=== PATIENT | female | born 1960 | race Caucasian/White ===

== ENCOUNTER 2019-04-09 15:46 | Outpatient (CLI) | payer OTHER, SELFPAY ==
--- NOTE | ~2019-04-09 | XR_ITS ---
EXAMINATION: XR knee RT min 4V DATE: 04/09/2019 16:11 INDICATION: Right knee pain. TECHNIQUE: 4 views of right knee were obtained. COMPARISON: None. FINDINGS: There is lateral subluxation of patella. There is lateral subluxation of tibia with respect to the distal femur. No fracture. There is mild osteoarthritis of medial compartment and moderate os teoarthritis of lateral and patellofemoral compartments. There is a small knee joint effusion. IMPRESSION: 1. Moderate right knee osteoarthritis. 2. Small right knee joint effusion. Reviewed, dictated and finalized at location A. 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
== END 2019-04-09 15:47 | disposition home or self-care (01) ==
LOC: CHSIMG 15:48
PROVIDERS: PCP Internal Medicine; Visit Provider Internal Medicine
DX: M25.561 Pain in right knee (principal)
CPT/HCPCS: 73564

== ENCOUNTER 2019-04-14 07:24 | Outpatient (CLI) | payer OTHER, SELFPAY ==
--- NOTE | ~2019-04-14 | MR_ITS ---
EXAMINATION: MR knee RT wo con DATE: 04/14/2019 09:58 INDICATION: Right knee pain and inferior right patellar pain TECHNIQUE: Magnetic resonance imaging (MRI) of the right knee was performed without intravenous contr ast. Sequences included coronal PD-weighted FSE, coronal PD-weighted FS FSE, sagittal T2-weighted FS E, sagittal PD-weighted FS FSE and axial PD weighted fat saturated FSE. COMPARISON: None. FINDINGS: Medial compartment: Medial meniscus is normal. Shallow chondral fissuring involving less than 50% the cartilage thickness along portions of the anterior weightbearing medial femoral condyle. Mild partial thickness cartilag e loss with relatively smooth chondral surface along the medial margin of the posterior weightbearing medial femoral condyle. Cartilage at the medial tibial plateau appears relatively preserved. Small m arginal osteophytes are present. Lateral compartment: Longitudinal tear of the lateral meniscus with oblique tear plane extending to contact the inferior a rticular surface at the anterior and posterior horns of the medial meniscus tear transitions to more horizontal orientation extending to the inferior articular surface near the inner free edge of the me niscus. Small para meniscal cysts along the periphery of the anterior horn of the lateral meniscus. F ull/near full-thickness cartilage loss with subarticular edema and mild subarticular cystic change at the medial aspect of the lateral tibial plateau along the shoulder the intercondylar eminence. Parti al-thickness cartilage loss with deep chondral fissuring involving greater than 50% the cartilage thi ckness and with mild subarticular edema along the medial side of the anterior weightbearing medial fe moral condyle. Small marginal osteophytes are present. Patellofemoral compartment: Extensive full/near full-thickness cartilage loss with underlying subarticular edema involving much o f the lateral patellar facet and weightbearing lateral femoral condyle. Mild chondral surface regular ity along the medial trochlea. Moderate to large marginal osteophytes are present. Ligaments and tendons: Anterior and posterior cruciate ligaments are normal. The medial collateral ligament and fibular evelin ateral ligament complex are normal. The extensor mechanism is normal. The visualized medial and later al hamstring tendons as well as the iliotibial band are normal. Fluid: Small to moderate sized right knee joint effusion with mild synovitis at the margins of the suprapate llar pouch. No loose osteochondral bodies identified. Small multilobulated ganglion cysts arising fro m the posterior medial aspect of the knee which extends caudally along the deep margin of the pes ans erinus. Additional ganglion cysts which appear to arise posteriorly near the intercondylar notch with both intraosseous and extraosseous components, the latter underlying the posterior lateral aspect of the medial tibial plateau. Osseous/other: Secondary previous noted degenerative subarticular changes there is normal marrow signal. No fracture or pathologic marrow replacing process. IMPRESSION: 1. Longitudinal tear of the lateral meniscus. 2. 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 3. Likely reactive moderate sized knee joint effusion. Reviewed, dictated and finalized at location A. [facility] C[employer] IMPRESSION: 1. Longitudinal tear of the lateral meniscus. 2. Tricompartmental osteoarthritis, severe at the lateral side of the patellofe moral compartment and mild with regions of moderate to high-grade chondromalaci a involve the medial and lateral compartments. 3. L
== END 2019-04-14 07:25 | disposition home or self-care (01) ==
LOC: CHSIMG 07:26
PROVIDERS: PCP Internal Medicine; Visit Provider Internal Medicine
DX: M25.561 Pain in right knee (principal)
CPT/HCPCS: 73721

== ENCOUNTER 2019-12-11 14:24 | Outpatient (CLI) | payer OTHER, SELFPAY ==
[2019-12-13 13:52] LABS: SARS-CoV-2 RNA PCR Negative
== END 2019-12-11 14:25 | disposition home or self-care (01) ==
LOC: CHSLAB 14:26
PROVIDERS: PCP Internal Medicine; Visit Provider Internal Medicine
DX: Z20.828 Contact with and (suspected) exposure to other viral communicable diseases (principal)
CPT/HCPCS: 87635; C9803; U0003

== ENCOUNTER 2021-02-26 12:15 | Outpatient (CLI) | payer OTHER, SELFPAY ==
--- NOTE | ~2021-02-26 | DEXA_ITS ---
Bone Density Report Name: LEOBARDO CUETO Age: 61 Sex: Female Ethnicity: White Date of : 1960 Indication: postmenopausal; screening for osteoporosis; height loss; Referring Provider: Amrita, Nakita Cote Study: Bone densitometry was performed. Exam Date: February 26, 2021 Accession number: [id number] Bone Density: Region BMD T-score Z-score Classification AP Spine(L1-L4) 0.944 -0.9 0.6 Normal Femoral Neck (Left) 0.726 -1.1 0.3 Osteopenia Total Hip (Left) 0.854 -0.7 0.3 Normal Femoral Neck (Right) 0.737 -1.0 0.4 Normal Total Hip (Right) 0.776 -1.4 -0.3 Osteopenia Femoral Neck Mean 0.732 -1.1 0.3 Osteopenia Total Hip Mean 0.815 -1.0 0.0 Normal World Health Organization criteria for BMD impression classify patients as: Normal (T-score at or above -1.0), Osteopenia (T-score between -1.0 and -2.5), or Osteoporosis (T-score at or below -2.5). 10-year Fracture Risk(1): Major Osteoporotic Fracture 7.6% Hip Fracture 0.5% Reported Risk Factors: [place] (), Neck BMD=0.726, BMI=27.6 (1) FRAX(R) Version 3.08. Fracture probability calculated for an untreated patient. Fracture probability may be lower if the patient has received treatment. Clinical Information Provided by Patient: Has used the following medications: Vitamin D Patient maximum height was 70 Menopause Age: 54 Drinks caffeinated beverages Onset of menses at age 15 Number of children 0 Impression: The patient has low bone mass, based on the Right Total Hip T-score. Discussion: BONE DENSITY IS LOW AT ONE OR MORE SKELETAL SITES. This patient's lowest T-score is low at one or more skeletal sites. It meets the World Health Organization's (WHO) criteria for ?low bone mass? (T-score between -1.0 and -2.5). The patient's 10-year risk of fracture as calculated by FRAX is less than the threshold where pharmacological therapy is recommended by the National Osteoporosis Foundation (NOF). However, all treatment decisions require clinical judgment and consideration of individual patient factors, including patient preferences, comorbidities, previous drug use, risk factors not captured in the FRAX model (e.g., frailty, falls, vitamin D deficiency, increased bone turnover, interval significant decline in bone density) and possible under or overestimation of fracture risk by FRAX. The patient should follow a healthful lifestyle (good nutrition with adequate calcium and vitamin D, and appropriate weight-bearing exercise). Follow-Up: Consider repeating this study in 2 to 3 years to reassess this patient's status, or sooner if there is some new clinical indication. Reported by: Dr. Troy Lockwood on 02/26/2021 12:49:00 PM. Reviewed, dictated and finalized at locat
== END 2021-02-26 12:16 | disposition home or self-care (01) ==
LOC: CHSIMG 12:16
PROVIDERS: PCP Internal Medicine; Visit Provider Nurse Practitioner Family
DX: Z78.0 Asymptomatic menopausal state (principal)
CPT/HCPCS: 77080

== ENCOUNTER 2021-05-06 16:10 | Outpatient (CLI) | payer OTHER, SELFPAY ==
--- NOTE | ~2021-05-06 | XR_ITS ---
EXAMINATION: XR knee RT min 4V DATE: 05/06/2021 16:31 INDICATION: Chronic diffuse right knee pain and swelling TECHNIQUE: Weight bearing anteroposterior and Hardwick, sunrise, and flexed lateral views of the rig ht knee were obtained COMPARISON: None. FINDINGS: 1 cm lateral patellar subluxation. There is also mild genu valgus and 7 mm lateral subluxation at the femorotibial articulation on the Hardwick projection. No fracture. Tricompartmental osteoarthritis with severe joint space are at the lateral aspect of the patellofemoral compartment with large margin al osteophytes. Mild to moderate joint space narrowing in the lateral compartment with the knee flexe d on the Hardwick projection. Moderate-sized marginal osteophytes along the medial and lateral tibia l plateau. Moderate-sized right knee joint effusion. IMPRESSION: 1. Tricompartmental osteoarthritis, severe at the lateral patellofemoral articulation and mild to mod erate in the lateral compartment. Reviewed, dictated and finalized at location A. 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 Tricompartmental osteoarthritis, severe at the lateral patellofemoral articu lation and mild to moderate in the lateral compartment.
== END 2021-05-06 16:11 | disposition home or self-care (01) ==
LOC: CHSIMG 16:11
PROVIDERS: PCP Internal Medicine; Visit Provider Internal Medicine
DX: M25.561 Pain in right knee (principal); M25.461 Effusion, right knee
CPT/HCPCS: 73564

== ENCOUNTER 2021-08-12 14:19 | Outpatient (RCR) | payer OTHER, SELFPAY ==
--- NOTE | 2021-08-12 15:01 | PTOPEVAL ---
Thank you for referring America Ozuna to [facility].? The patient is scheduled to be seen for therapy? __2__x/week for 8 visits. Please review, sign, date and return this plan of care SUSAN. I agree with and certify that the following plan of care is medically necessary. Referring Physician Date Admitting Provider: Attending Provider: Adi Puentes MD Referring Provider: *PT Outpatient Evaluation Start: 08/12/21 14:22 Freq: Status: Active Protocol: Document 08/12/21 14:23 HOA (Rec: 08/12/21 15:01 HOA [id number]) Therapy Assessment Status Assessment Status Assessment Status Evaluation Evaluation Information Problem Diagnosis right anterior knee pain syndrome Onset 02/28/21 Subjective Information Pt. reports that about 2 years Query Text:As Reported By Patient/ ago she developed on/off knee Family pain. She reports that February of this year she began noticing swelling. She recalls no specific injury. She states that she underwent xray and revealed she is a candidate for knee replacment. 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 She states that pain develops at night and disrupts sleep. Pain Assessment Timing of Pain Assessment Timing of Pain Assessment Pre-Treatment Pain Scale Pain Scale Used Numeric (1 - 10) Self Report Pain Assessment Right Knee(s) Reported Pain Level 2 Greatest Pain Intensity 5 Pain Score Pain Score 2: Self Report Interventions Used Interventions Used By Clinicians Electrical Stimulation, Exercise,Heat Lower Extremity Range of Motion General Lower Extremity Range of Motion Gross Lower Extremity Range of Motion -right knee AROM 7-125 Comments -left knee AROM 0-125 Lower Extremity Muscle Strength Testing General Lower Extremity Strength Gross Lower Extremity Strength -bilateral hip flexion 5/5 -bilateral hip abduction 4/5 -bilateral knee flexion 5/5 -bilateral knee extension 5/5 -bilateral ankle dorsiflexion 5/5 Muscle Length Testing Muscle Length Testing Left Hamstring Length 10 Query Text:(90 - 90 Position)
== END 2021-09-21 18:29 | disposition home or self-care (01) ==
LOC: CHSPT 14:19
PROVIDERS: Visit Provider Orthopaedic Surgery
DX: M25.561 Pain in right knee (principal)
CPT/HCPCS: 97014; 97110; 97140; 97161; G0283

== ENCOUNTER 2021-10-05 13:36 | Outpatient (CLI) | payer OTHER, SELFPAY ==
--- NOTE | 2021-10-05 14:34 | ECG_ITS ---
Measurements Intervals [place] Rate: 73 P: 27 CA: 164 QRS: 39 QRSD: 85 T: 21 QT: 367 QTc: 407 Interpretive Statements SINUS RHYTHM ABNORMAL EKG NO PREVIOUS ECG AVAILABLE FOR COMPARISON Electronically Signed On 10-06-2021 16:23:50 CDT by Aparna Coombs M.D.
[2021-10-05 15:03] LABS: Basophils Absolute Auto 0.1 K/mm3 (0.0-0.1); Basophils Percent Auto 0.9 % (0.2-1.2); Eosinophils Absolute Auto 0.4 K/mm3 (0-0.3); Eosinophils Percent Auto 5.2 % (0-4.4); Hematocrit 41.8 % (37.0-47.0); Hemoglobin 13.2 g/dL (12.0-15.0); Immature Granulocyte Absolute 0.04 K/mm3 (0.00-0.031); Immature Granulocyte Percent A 0.5 % (0-0.5); Lymphocytes Absolute Auto 2.31 K/mm3 (0.9-3.2); Lymphocytes Percent Auto 29.4 % (18.3-44.2); Mean Corpuscular HGB Conc 31.6 g/dl (32-36); Mean Corpuscular Hemoglobin 27.4 pg (26-34); Mean Corpuscular Volume 86.7 fl (80-100); Mean Platelet Volume 9.7 fl (7.4-10.4); Monocytes Absolute Auto 0.6 K/mm3 (0.1-0.6); Monocytes Percent Auto 7.5 % (2.6-8.5); Neutrophils Absolute Auto 4.4 K/mm3 (1.3-6.7); Neutrophils Percent Auto 56.5 % (45.5-73.1); Platelet Count Result 309 k/mm3 (150-375); Red Blood Count 4.82 M/mm3 (4.2-5.4); Red Cell Distribution Width 14.6 % (11.5-14.5); White Blood Count 7.9 K/mm3 (4.5-10.0)
[2021-10-05 15:12] LABS: Urine Cotinine NEGATIVE
[2021-10-05 15:15] LABS: Hemoglobin A1C 5.8 % (<5.7)
[2021-10-05 15:17] LABS: Albumin Level 4.7 g/dL (3.5-5.1); Anion Gap 9 mmol/L (8-16); Blood Urea Nitrogen 15 mg/dL (7-17); Calcium 9.5 mg/dL (8.4-10.2); Carbon Dioxide 30 mmol/L (22-30); Chloride 99 mmol/L (98-107); Estimated Glomerular Filt Rate > 60; Glucose 93 mg/dL (65-110); Potassium 3.5 mmol/L (3.4-5.0); Sodium 138 mmol/L (137-145)
== END 2021-10-05 13:37 | disposition home or self-care (01) ==
LOC: ANHSURGERY 13:41
PROVIDERS: PCP Internal Medicine; Visit Provider Orthopaedic Surgery
DX: M17.11 Unilateral primary osteoarthritis, right knee (principal); Z01.818 Encounter for other preprocedural examination; R94.31 Abnormal electrocardiogram [ECG] [EKG]
CPT/HCPCS: 80048; 80307; 82040; 83036; 85025; 87070; 87147; 87181; 87186; 93005

== ENCOUNTER 2021-10-21 02:12 | Day surgery (SDC) | payer OTHER, SELFPAY ==
[2021-10-05 13:46] VITALS: BMI 27.3
--- NOTE | 2021-10-05 14:10 | PC.NURSE ---
Report to the Outpatient Waiting Room, entrance under the green pavilion located off [facility], at time __1000 on date __10/21/21 . OR Time: _1200 . - You and your visitor will be asked a series of questions to screen for COVID 19 for your protection. - Only one visitor is allowed at this time. - The patient visitor is requested to leave or wait in car when not with patient. - A mask is required within the hospital. Patients may have clear liquids (water, carbonated beverages, clear teas, apple juice) until 3 hours prior to surgery with a maximum of 20 ounces. - No food from midnight until time of surgery - Infants may have breast milk until 4 hours before surgery, infant formula 6 hours prior to surgery. - Children will be allowed to drink immediately following surgery. If applicable, please bring a bottle or sippy cup to assist with drinking. Juice, water, soda, and popsicles are readily available. For infants on formula, please bring formula the day of surgery. Pacifiers are allowed. Take the following medications with a SIP of water the morning of surgery: ____ESCITALOPRIM Medications to discontinue per physician __VITAMIN D3 3 DAYS PRE OP Date to take last dose____10/17/21 Please no make-up, nail syriac, hairspray, perfume, deodorant, or body powder the day of surgery. No jewelry (including any body piercings) or valuables the day of surgery, leave them at home. Please take a shower or bath the night before, or the morning of, surgery with an antibacterial soap. Wear comfortable, loose fitting clothing. Children are encouraged to wear pajamas. - Jewelry must be removed prior to entering the operating room. Rings and piercings that are not removed may be cut off. - The hospital will not accept responsibility for valuables. - Please leave all valuables, including medications, at home the day of surgery. If you are going home after surgery, a licensed driver messenger must drive you home. - NO public transportation without another adult. - We recommend that an adult stay with you for 24 hours following discharge. - We also recommend that you do not drive, make important decision, drink alcoholic beverages, or take any drugs that were not prescribed by your health care provider for at least 24 hours after your discharge time. For Pediatric surgeries, we recommend two adults accompany the child home (only one inside the building at this time). Follow any additional instructions given to you from your surgeon. If you or anyone in your household have experienced Covid symptoms in the past week, please notify your surgeon or the nurse liaison at the phone number below for possible testing. VERBAL AND WRITTEN instructions given to ___PATIENT and asked if any additional questions and then verbalized understanding. Patient advised to call surgeon office or pre surgery nurse liaison [phone] if any additional questions.
[2021-10-05 14:24] VITALS: BP 136/88; PULSE 71; RESP 18; TEMP 36.9; O2SAT 100
--- NOTE | 2021-10-19 12:08 | PM.IMHP ---
H&P: HPI History of Present Illness Date/Time: 10/19/21 12:08 Chief Complaint: Right knee DJD Narrative: 61-year-old female patient of Dr. Saldana who presents today for a right total knee arthroplasty. Patient has been having progressively worsening symptoms in the right knee over last 6-8 months. She has severe patellofemoral osteoarthritis as well as moderately severe lateral compartment osteoarthritis. She had a cortisone injection in April of this year as well as been on anti-inflammatories without improvement of her symptoms. She has pain on a daily basis that is affecting her lifestyle. She feels this point she is ready to proceed with total knee arthroplasty and presents today for that. Review of Systems Review of Systems: All systems reviewed & are unremarkable except as noted in HPI and below PMFSH Social History Social History Smoking packs per day: 1 Smoking cigarettes per day: 20.0 Years smoked: 5 Smoking pack-years: 5.00 Smoking status: Former smoker Tobacco type: cigarettes Smoking end date: 02/28/01 Additional smoking assessment comments: DENIES ANY FORM OF TOBACCO USE Alcohol intake: current Drinks per week: 2 Spiritual care concerns: No Meds Home Medications and Allergies Home Medications Medication Instructions Recorded Confirmed Type celecoxib 200 mg capsule 200 mg PO DAILY 10/05/21 10/05/21 History cholecalciferol (vitamin D3) 25 25 mcg PO DAILY 10/05/21 10/05/21 History mcg (1,000 unit) tablet escitalopram oxalate 10 mg tablet 10 mg PO QAM 10/05/21 10/05/21 History hydrocodone 10 mg-acetaminophen 1.5 tablet PO BID INSOMNIA/PAIN 10/05/21 10/05/21 History 325 mg tablet Allergies Allergy/AdvReac Type Severity Reaction Status Date / Time Penicillins Allergy Rash/JOINT Verified 10/05/21 13:48 PAIN Sulfa (Sulfonamide Allergy Rash/JOINT Verified 10/05/21 13:48 Antibiotics) PAIN Exam Narrative: 62-year-old female alert pleasant. She is 5 ft 9 and 184 lb, her BMI is 27.2. Right knee range of motion is from 5-140 degrees. She has a moderate effusion. Mild valgus alignment. Mild atrophy of the right quadriceps relative to the left. Does have good quadriceps strength. Hip range of motion is full without discomfort, negative Stinchfield maneuver. Trace dorsalis pedis and 2+ posterior tibial artery pulse palpable. Skin is all intact and normal with no edema in the lower extremities. She has normal sensation lower extremities. Resp: Auscultation: clear to auscultation bilaterally Cardio: Rate: regular rate Rhythm: regular rhythm Assessment and Plan Assessment and plan (1) Right knee DJD: Code(s): M17.11 - Unilateral primary osteoarthritis, right knee Status: Acute Plan 61-year-old female who has severe patellofemoral and moderately severe lateral compartment osteoarthritis of the right knee. She has failed nonsurgical treatment. She has had continued symptoms of pain daily that is affecting her normal lifestyle. She is ready to proceed with total knee arthroplasty at this point. Surgical procedure as well as the risks and complications were discussed in detail and all questions were answered. She will see her primary care doctor for pre-surgical clearance. She will avoid any aspirin or ibuprofen products 1 week prior surgery. Her nasal swab did go oxacillin sensitive Staph aureus, she has been in the colonizing as of 10/12. The Chem panel was all within normal limits creatinine 0.70. Hemoglobin 13.2 and platelets were 309. We will plan to use Eliquis for DVT prophylaxis postoperatively.
--- NOTE | 2021-10-20 12:00 | P.PNAN_ITS ---
Anes - Initial Pre Proc Eval Procedure: Operation Date: 10/21/21 12:00 Proposed Procedures p Right Total Knee Arthroplasty - Adi Puentes MD Date/Time: 10/20/21 12:00 Surgeon: Adi Puentes MD Pre Op Diagnosis: oa right knee Patient Data Age: 61 Gender: F Height: 1.75 m Weight: 83.8 kg Last Vital Signs Temp 36.9 C 10/05/21 14:24 Pulse 71 10/05/21 14:24 Resp 18 10/05/21 14:24 BP 136/88 10/05/21 14:24 Pulse Ox 100 10/05/21 14:24 O2 Del Method Room Air 10/05/21 14:24 Allergies Allergy/AdvReac Type Severity Reaction Status Date / Time Penicillins Allergy Rash/JOINT Verified 10/21/21 09:57 PAIN Sulfa (Sulfonamide Allergy Rash/JOINT Verified 10/21/21 09:57 Antibiotics) PAIN Home Medications Medication Instructions Recorded Confirmed Type celecoxib 200 mg capsule 200 mg PO DAILY 10/05/21 10/21/21 History cholecalciferol (vitamin D3) 25 25 mcg PO DAILY 10/05/21 10/21/21 History mcg (1,000 unit) tablet escitalopram oxalate 10 mg tablet 10 mg PO QAM 10/05/21 10/21/21 History hydrocodone 10 mg-acetaminophen 1.5 tablet PO BID INSOMNIA/PAIN 10/05/21 10/21/21 History 325 mg tablet Patient hx anesthesia problems: none Family hx anesthesia problems: none Results Review: All pre-operative results and documents have been reviewed as part of the pre- operative evaluation. PMFSH Past Medical History Medical History (Updated 10/20/21 @ 12:07 by Abhishek Leblanc MD) Right knee DJD Social History Social History Smoking packs per day: 1 Smoking cigarettes per day: 20.0 Years smoked: 5 Smoking pack-years: 5.00 Smoking status: Former smoker Tobacco type: cigarettes Smoking end date: 02/28/01 Additional smoking assessment comments: DENIES ANY FORM OF TOBACCO USE Alcohol intake: current Drinks per week: 2 Living arrangements: with family Spiritual care concerns: No Anes - Eval Final PreProcedure Day of Procedure 08/23/22 12:00 Patient weight: overweight Heart: regular rate and rhythm Lungs: clear to auscultation and normal air movement Airway: Mallampati scale class II Neurological: alert and oriented Last oral intake: >/= 8 hours ASA classification: II Emergent: no Anesthetic plan: proceed Anesthesia type and monitoring: general LMA Results Review: All pre-operative results and documents have been reviewed as part of the pre- operative evaluation. Informed Consent: The patient's anesthetic plan and its attendant risks and benefits were discussed with the patient/family/POA. Questions were solicited and answers provided to the satisfaction of the patient/family/POA.
[2021-10-21] VITALS (12 sets, daily range): BP systolic 110–147; BP diastolic 61–91; PULSE 78–102; RESP 10–16; TEMP 35.6–36.8; O2SAT 97–100
--- NOTE | ~2021-10-21 | XR_ITS ---
EXAM: XR knee RT 2V DATE: 10/21/2021 16:28 HISTORY: RT TOTAL KNEE . COMPARISON: None available. FINDINGS: Interval right total knee arthroplasty, image in progress. Hardware in anatomic alignment, with subcutaneous and joint space gas. IMPRESSION: Expected postsurgical changes, with no radiographic evidence of procedure or hardware rel ated complication. Reviewed, dictated and finalized at location K. IMPRESSION: Expected postsurgical changes, with no radiographic evidence of pro cedure or hardware related complication.
[2021-10-21] MEDS: ACETAMINOPHEN 500 MG TABLET 1000 MG PO ×3 (10:01→23:55)
[2021-10-21] MEDS: LACTATED RINGERS 1,000 ML 30 ML IV CONT ×2 (10:24→16:16)
--- NOTE | 2021-10-21 11:15 | SUR.PREOP ---
Patient developed itchy head so slowed vacomycin to 100ml/hr and itching subsided.
[2021-10-21] MEDS: TRANEXAMIC ACID 1,000MG/ISO100 1,000 MG/100 ML BAG 200 MG IVPB (11:54)
--- NOTE | 2021-10-21 11:56 | WPDHPUPDATE1 ---
History and Physical Update Update Date/Time: 10/21/21 11:56 History and Physical has been reviewed, including an updated exam of the patient. There are NO changes in the patient's condition. Risks, benefits, and alternatives have been discussed and questions answered. Patient agrees to proceed with procedure.
[2021-10-21] MEDS: ceFAZolin 2 GM/D5W 50 ML 2 GM/50 ML BAG IVPB (12:04)
[2021-10-21] MEDS: ceFAZolin SODIUM 1 GM VIAL 3 GM IRRIGATION (13:30)
[2021-10-21] MEDS: GENTAMICIN BONE CEMENT REFOBACIN 1 EACH TOPICAL (14:47)
[2021-10-21] MEDS: TRANEXAMIC ACID 1,000 MG/10 ML AMPUL 1000 MG IV PUSH (15:00)
[2021-10-21] MEDS: ceFAZolin SODIUM 1 GM VIAL 2 GM IV PUSH (15:06)
--- NOTE | 2021-10-21 15:56 | W.PM.PROC2 ---
Procedure Note - Detailed Date of Procedure 10/21/21 Pre-op Diagnosis oa right knee Post-op Diagnosis Same Procedure Performed Right total knee arthroplasty Surgeon Adi Puentes MD [employer] Shukri alvarez Description of Procedure Patient was brought to the operating room and general anesthesia was administered. He she received 2 g of Ancef weight based vancomycin 1 g of tranexamic acid preoperatively. The the right knee was prepped draped usual fashion. She had a fairly positive bounce before surgery indicating about 2 or 3 degree flexion contracture. Limb was exsanguinated tourniquet elevated to 250 mmHg. A 7 in longitudinal incision was made and a vastus medialis splitting approach utilized splitting the vastus medialis at the superior pole of the patella. Infrapatellar and suprapatellar fat pads were excised and a quadriceps synovectomy carried out. She did have rather extensive chronic appearing bland synovium that was quite hypertrophic on the undersurface of the acromion. Large hypertrophic osteophytes were present diffusely. The patella was scalloped and measured 21 mm in thickness centrally. There was a little thicker than this at the inferior and superior poles of the patella. The bone was quite eburnated bone was a little bit of bone loss. Central patellar thickness was 21 mm. The patella was cut to 15 mm. A protector cap was applied. Bone quality was very good there. Next a guide joe was inserted on the femoral canal after aspiration of canal contents using the 5 degree valgus cutting bushing, 9 mm of bone removed the distal femur. Next the tibial plateau was cut. We tried to make a skim cut off the low point of the medial tibial plateau. Our initial cut left a little bit of cartilage on the posterior 1/3 of the tibial plateau. An additional 2.5 mm of bone was removed the tibial plateau and this gave appropriate exposed bone surface all the way around the tibial plateau and we ensured that this was perpendicular to the axis of the tibia. Meniscal remnants were excised and PCL recessed. We avoided any capsule released from the medial tibia during the procedure as she had a grade 1 valgus deformity. At 90? of flexion the medial gap was 9 mm the lateral gap 14 mm. 6? of external rotation was placed on the sizing guide which matched [place] line and posterior referencing pinholes were placed. Week made the anterior cut initially with the size 67.5 cutting block and we could see on initial placement that this was going to notch little bit and so we did flex the distal femoral cut a few degrees. AP and chamfer cuts were made and we trialed and the 67.5 was too wide. We therefore downsized to the 65 and 65 cutting block was carefully applied incorporating the little bit of flexion and further stabilized with the threaded pins. Her bone on the medial side of the femur was quite osteoporotic so we were very careful to stabilized cutting block and complete the cuts while leaving a tight fit for the trial which was accomplished and the 65 fit line to line with less than a mm of lateral overhang was appropriate. We trialed and the knee was too tight in extension laterally with the 10 mm CR insert and had ample play in flexion with this. Additional 2 mm of bone removed the distal femur and chamfer cuts revisited. The tibia was then sized to a size 71 which fit line to line medial to lateral and anteromedial to posterolateral with the component in proper rotation and this was punched. Posterior femoral osteophyte was removed conservative central posterior release was performed of the capsule from the distal femur and we trialed. The 10 was the 10 was too loose in flexion the 11 was appropriate in flexion and with the arthrotomy towel clipped there was complete anterior drawer stability at 120? of flexion beyond. In extension there was about 3 mm of play medially and 1 mm laterally. The knee almost came out to full extension but not q
[2021-10-21] MEDS: fentaNYL CITRATE INJ (*CRX) 100 MCG/2 ML VIAL 25 MCG IV PUSH ×6 (16:42→17:38)
--- NOTE | 2021-10-21 16:50 | SUR.PHASEI ---
1649: Simple mask removed.
--- NOTE | 2021-10-21 17:52 | ADMGEN ---
This patient, America Ozuna, was admitted to 2 Medical Room 256-. Patient/family oriented to hospital policies and general routines including ID bracelet, bed and alarms, visiting hours, pain management, procedures, bathroom and other care routines, personal items, smoking policy, room service/diet, and visiting hours. Information on how to activate the Rapid Response Team has been discussed. Patient/Family are encouraged to report perceived risks to care and to ask questions if they do not understand what they are told or what they should do.
[2021-10-21] MEDS: oxyCODONE HCL (*CRX) 2.5 MG TAB IR 7.5 MG PO ×2 (18:22→22:04)
[2021-10-21] MEDS: SENNA/DOCUSATE SODIUM TABLET 2 TAB PO (18:22)
[2021-10-21] MEDS: SODIUM CHLORIDE 0.9% IV 1,000 ML 125 ML IV CONT (18:24)
--- NOTE | 2021-10-21 18:55 | PM.IMCN ---
Assessment and Plan Assessment and plan (1) Right knee DJD: Code(s): M17.11 - Unilateral primary osteoarthritis, right knee Status: Acute Assessment and Plan: Status post right TKA 10/21. Ortho managing, pain meds per Ortho. Patient on Eliquis for DVT prophylaxis. Incentive spirometer at bedside, educated patient on use (2) Anxiety: Code(s): F41.9 - Anxiety disorder, unspecified Status: Acute Assessment and Plan: Continue Lexapro HPI Data of Consult Consult date: 10/21/21 Requesting Physician: Adi Puentes MD Primary Care Provider: Gilberto Saldana MD Consult Narrative Narrative: Greater than 30 minutes spent reviewing chart, evaluating, treating, counseling patient. America Ozuna is a 61 year old female past medical history of anxiety and right knee DJD. Presented for right TKA, now postop. Medicine consult for medical management. Patient denies any symptoms including shortness of breath, chest pain, palpitations, fever/chills, nausea/vomiting, diarrhea/constipation, dysuria/hematuria. Patient reports no pain at the moment. Has not had a bowel movement or pass urine since her procedure as of yet. Review of Systems Review of Systems: Ten point ROS reviewed, negative unless otherwise specified per HPI PMFSH Past Medical History Medical History (Updated 10/21/21 @ 18:59 by Ritchie Dunlap DO) Right knee DJD Social History Social History Smoking packs per day: 2 Smoking cigarettes per day: 40.0 Years smoked: 5 Smoking pack-years: 10.00 Smoking status: Former smoker Tobacco type: cigarettes Smoking end date: 02/28/01 Additional smoking assessment comments: DENIES ANY FORM OF TOBACCO USE Alcohol intake: current Drinks per week: 1 Substance use: never Substance use type: does not use Living arrangements: with family Spiritual care concerns: No Meds Home Medications and Allergies Home Medications Medication Instructions Recorded Confirmed Type celecoxib 200 mg capsule 200 mg PO DAILY 10/05/21 10/21/21 History cholecalciferol (vitamin D3) 25 25 mcg PO DAILY 10/05/21 10/21/21 History mcg (1,000 unit) tablet escitalopram oxalate 10 mg tablet 10 mg PO QAM 10/05/21 10/21/21 History hydrocodone 10 mg-acetaminophen 1.5 tablet PO BID INSOMNIA/PAIN 10/05/21 10/21/21 History 325 mg tablet Allergies Allergy/AdvReac Type Severity Reaction Status Date / Time Penicillins Allergy Rash/JOINT Verified 10/21/21 09:57 PAIN Sulfa (Sulfonamide Allergy Rash/JOINT Verified 10/21/21 09:57 Antibiotics) PAIN Vital Signs Vital Signs - 24 hr 10/21/21 10:07 10/21/21 16:16 10/21/21 16:30 Temperature 98 F 97.9 F Pulse Rate 78 102 H 86 Respiratory Rate 16 16 14 Blood Pressure 147/91 H 133/80 142/75 H Pulse Oximetry 100 100 100 Oxygen Delivery Room Air Simple Face Mask Simple Face Mask Oxygen Flow Rate 6 6 10/21/21 16:45 10/21/21 17:00 10/21/21 17:15 Temperature Pulse Rate 87 90 88 Respiratory Rate 10 L 12 14 Blood Pressure 138/67 136/83 137/73 Pulse Oximetry 100 99 97 Oxygen Delivery Simple Face Mask Room Air Room Air Oxygen Flow Rate 6 10/21/21 17:30 10/21/21 17:38 10/21/21 17:53 Temperature 96.9 F L 96.3 F L Pulse Rate 93 94 86 Respiratory Rate 13 16 16 Blood Pressure 121/81 131/64 131/68 Pulse Oximetry 98 98 99 Oxygen Delivery Room Air Oxygen Flow Rate 10/21/21 18:03 10/21/21 18:36 Temperature 96.1 F L Pulse Rate 87 Respiratory Rate 16 Blood Pressure 135/71 Pulse Oximetry 98 Oxygen Delivery Room Air Oxygen Flow Rate Exam Const: General: comfortable and no acute distress HENMT: Mouth: Yes moist mucous membranes Eyes: General: appearance normal, both eyes and all related structures Sclera: sclerae normal Neck: Neck: supple Resp: Effort & Inspection: normal respiratory effort Auscultation: clear to auscultatio
[2021-10-22] MEDS: oxyCODONE HCL (*CRX) 2.5 MG TAB IR 7.5 MG PO (02:02)
[2021-10-22 03:23] VITALS: BP 104/51; PULSE 100; RESP 12; TEMP 36.6; O2SAT 100
[2021-10-22 05:52] LABS: Basophils Percent Auto 0.3 % (0.2-1.2); Eosinophils Percent Auto 0.3 % (0-4.4); Hematocrit 34.2 % (37.0-47.0); Immature Granulocyte Absolute 0.05 K/mm3 (0.00-0.031); Immature Granulocyte Percent A 0.4 % (0-0.5); Lymphocytes Absolute Auto 1.22 K/mm3 (0.9-3.2); Lymphocytes Percent Auto 10.4 % (18.3-44.2); Mean Corpuscular HGB Conc 32.2 g/dl (32-36); Mean Corpuscular Hemoglobin 27.6 pg (26-34); Mean Corpuscular Volume 85.7 fl (80-100); Mean Platelet Volume 10.1 fl (7.4-10.4); Monocytes Percent Auto 8.3 % (2.6-8.5); Neutrophils Absolute Auto 9.4 K/mm3 (1.3-6.7); Neutrophils Percent Auto 80.3 % (45.5-73.1); Platelet Count Result 281 k/mm3 (150-375); Red Blood Count 3.99 M/mm3 (4.2-5.4); Red Cell Distribution Width 14.1 % (11.5-14.5); White Blood Count 11.8 K/mm3 (4.5-10.0)
[2021-10-22] MEDS: oxyCODONE HCL (*CRX) 2.5 MG TAB IR PO ×3 (05:57→14:04)
[2021-10-22] MEDS: ACETAMINOPHEN 500 MG TABLET 1000 MG PO ×2 (05:57→12:09)
[2021-10-22] MEDS: oxyCODONE HCL (*CRX) 5 MG TAB IR PO ×3 (05:57→14:07)
[2021-10-22 05:58] LABS: Anion Gap 5 mmol/L (8-16); Blood Urea Nitrogen 11 mg/dL (7-17); Calcium 8.5 mg/dL (8.4-10.2); Carbon Dioxide 29 mmol/L (22-30); Chloride 103 mmol/L (98-107); Estimated CRCL calculation 75 ml/min; Estimated Glomerular Filt Rate > 60; Glucose 110 mg/dL (65-110); Potassium 3.7 mmol/L (3.4-5.0); Sodium 137 mmol/L (137-145)
--- NOTE | 2021-10-22 07:17 | PM.PNORT ---
Subjective Subjective Date/Time Seen: 10/22/21 07:17POD 1 alert avss , labs-noted, pt has been up to restroom multiple times so far. Pain is well controlled, dressing is dry, NVI, plan to have pt work with PT today then send home this afternoon Objective Data Vital Signs Vital Signs: Vital Signs - 24 hr 10/21/21 10:07 10/21/21 16:16 10/21/21 16:30 Temperature 36.6 C 36.6 C Pulse Rate 78 102 H 86 Respiratory Rate 16 16 14 Blood Pressure 147/91 H 133/80 142/75 H Pulse Oximetry 100 100 100 Oxygen Delivery Room Air Simple Face Mask Simple Face Mask Oxygen Flow Rate 6 6 10/21/21 16:45 10/21/21 17:00 10/21/21 17:15 Temperature Pulse Rate 87 90 88 Respiratory Rate 10 L 12 14 Blood Pressure 138/67 136/83 137/73 Pulse Oximetry 100 99 97 Oxygen Delivery Simple Face Mask Room Air Room Air Oxygen Flow Rate 6 10/21/21 17:30 10/21/21 17:38 10/21/21 17:53 Temperature 36.1 C L 35.7 C L Pulse Rate 93 94 86 Respiratory Rate 13 16 16 Blood Pressure 121/81 131/64 131/68 Pulse Oximetry 98 98 99 Oxygen Delivery Room Air Oxygen Flow Rate 10/21/21 18:03 10/21/21 18:36 10/21/21 19:23 Temperature 35.6 C L 36.6 C Pulse Rate 87 86 Respiratory Rate 16 12 Blood Pressure 135/71 127/61 Pulse Oximetry 98 99 Oxygen Delivery Room Air Oxygen Flow Rate 10/21/21 23:23 10/22/21 03:23 Temperature 36.8 C 36.6 C Pulse Rate 99 100 Respiratory Rate 16 12 Blood Pressure 110/71 104/51 L Pulse Oximetry 97 100 Oxygen Delivery Oxygen Flow Rate Intake/Output Intake/Output: Intake & Output 10/19/21 10/20/21 10/21/21 10/22/21 23:59 23:59 23:59 23:59 Intake Total 1800 1250 Output Total 200 Balance 1800 1050 Meds/Results Medications: Active Medications Generic Name Dose Route Start Last Admin Trade Name Freq PRN Reason Stop Dose Admin Acetaminophen 1,000 mg 10/21/21 18:00 10/22/21 05:57 Acetaminophen 500 Mg Tablet PO 1,000 mg Q6H RONALD Administration Apixaban 2.5 mg 10/22/21 09:00 Apixaban 2.5 Mg Tablet PO Q12HR [facility] Celecoxib 200 mg 10/22/21 09:00 Celecoxib 200 Mg Capsule PO DAILY [facility] Cephalexin HCl 500 mg 10/22/21 18:00 Cephalexin 500 Mg Capsule PO Q6HR [facility] Escitalopram Oxalate 10 mg 10/22/21 09:00 Escitalopram Oxalate 10 Mg Tablet PO QAM RONALD Vancomycin HCl 1,000 mg in 250 mls @ 250 mls/hr 10/21/21 22:00 10/21/21 23:55 Vancomycin 1,000 Mg/D5w 250 Ml IVPB 10/22/21 10:59 Infused Q12H [facility] Infusion Cefazolin Sodium 1 gm in 50 mls @ 100 mls/hr 10/21/21 23:00 10/22/21 06:43 Ancef 1 Gm/D5w 50 Ml Pm IVPB 10/22/21 15:29 100 mls/hr Q8H [facility] Administration Morphine Sulfate 2 mg 10/21/21 17:38 Morphine Sulfate (*Crx) 2 Mg/Ml Inj IV PUSH Q1H PRN Pain Rated 7-10 Naloxone HCl 0.1 mg 10/21/21 17:38 Naloxone Hcl 0.4 Mg/Ml Vial IV PUSH Q2M PRN Opiate Reversal Oxycodone HCl 5 mg 10/21/21 17:38 Oxycodone Hcl (*Crx) 5 Mg Tab Ir PO Q4H PRN Pain Rated 4-10 Oxycodone HCl 2.5 mg 10/22/21 06:00 10/22/21 05:57 Oxycodone Hcl (*Crx) 2.5 Mg Tab Ir PO 2.5 mg Q4H RONALD Administration Oxycodone HCl 5 mg 10/22/21 06:00 10/22/21 05:57 Oxycodone Hcl (*Crx) 5 Mg Tab Ir PO 5 mg Q4H [facility] Administration Polyethylene Glycol 17 gm 10/22/21 09:00 Polyethylene Glycol 3350 17 Gm Powd.Pack PO QAM [facility] Senna/Docusate Sodium 2 tab 10/21/21 17:38 10/21/21 18:22 Senna/Docusate Sodium Tablet PO 2 tab BID [facility] Administration Vitamin D 1,000 units 10/22/21 09:00 Cholecalciferol 1,000 Units Tablet PO DAILY RONALD Radiology Results: ITS Impressions Knee X-Ray 10/21/21 16:29 IMPRESSION: Expected postsurgical changes, with no radiographic evidence of procedure or hardware related complication. Labs Labs: Laboratory Results - last 24 hr 10/21/21 10/22/21 10/22/21 10:20 05:19 05:19 WBC 11.8 H RBC 3.99 L Hgb 11.0 L Hc
--- NOTE | 2021-10-22 09:13 | PM.DS ---
DS: Admitting Diagnosis Discharge Date 10/22 Admitting Diagnosis right knee DJD DS: Discharge Diagnosis Discharge Diagnosis Plan 61-year-old female who underwent right total knee arthroplasty on 10/21. Underwent the procedure without complications. Postoperatively she has been afebrile vital signs are stable. She was up to the restroom multiple times a day of surgery. Overall pain is well controlled. Patient will work with Physical therapy on . If she continues do well we will plan on discharging home later that day. She is on Eliquis for DVT prophylaxis. She is on Keflex due to her positive nasal swab for NEMESIO. She is going home on Celebrex once a day as well as scheduled Tylenol and oxycodone 5 mg. She is also on Senokot and MiraLax. Patient was advised to keep the leg elevated at home to prevent swelling. She is to do her exercises on a regular basis at home. She has outpatient therapy starting next Tuesday. Patient was advised any questions or concerns when she goes home she is to call the office otherwise we will see her at her appointed date. DS: Summary Hospital Course Hospital Course: Stable Time Spent with Patient Time attestation: Total time spent providing and/or coordinating discharge services: DS: Data Data Completed and Pending Labs on day of discharge: Labs from last 24 hours 10/22/21 10/22/21 10/21/21 05:19 05:19 10:20 WBC 11.8 H RBC 3.99 L Hgb 11.0 L Hct 34.2 L MCV 85.7 MCH 27.6 MCHC 32.2 RDW 14.1 Plt Count 281 MPV 10.1 Immature Gran % (Auto) 0.4 Neut % (Auto) 80.3 H Lymph % (Auto) 10.4 L [place] % (Auto) 8.3 Eos % (Auto) 0.3 Baso % (Auto) 0.3 Lymph # (Auto) 1.22 [place] # (Auto) 1.0 H Eos # (Auto) 0.0 Baso # (Auto) 0.0 Abs Immat Gran (auto) 0.05 H Absolute Neuts (auto) 9.4 H Absolute Nucleated RBC 0.0 Nucleated RBC % 0.0 Sodium 137 Potassium 3.7 Chloride 103 Carbon Dioxide 29 Anion Gap 5 L BUN 11 Creatinine 0.70 Estim Creat Clear Calc 75 Estimated GFR > 60 Glucose 110 Calcium 8.5 Blood Type O Positive Antibody Screen Negative Discharge Plan Discharge Patient Disposition: Home, Self-Care Discharge Instructions: ADI PUENTES M.D [facility], [place] [address] [address] POST-OPERATIVE DISCHARGE INSTRUCTIONS TOTAL KNEE ARTHROPLASTY 1. When resting, lie on back with leg elevated above heart to minimize swelling. Significant swelling could indicate a blood clot and if this occurs call the office (or go to the ER) to have a venous ultrasound. 2. Do exercise 5 times a day. 3. Do not sit with leg down except for meals. 4. Wound Care: Nursing will give additional dressings at discharge. Patient to change dressing at home 1 week from surgery, then maintain until seen in office. 5. May shower with dressing in place. 6. Follow weight bearing status instructions. IMPORTANT: Remember not to sit in the chair for more than 30 minutes at a time. As a rule, during the first 14 days after surgery, only sit in the chair to work on the chair knee bending stretch exercise, for meals or for use of the restroom. Sitting in the chair promotes significant swelling in the knee and leg which will make the knee stiff and more painful and which simulates having a blood clot in the veins of the leg. If this type of significant diffuse swelling occurs, an ultrasound at the hospital will be necessary to rule out a blood clot. Be up walking around with the walker for a few minutes every hour while awake and then rest laying on your back on the couch or in bed with your leg elevated on cushions or pillows. Do not rest in the chair. Patient Instructions: Apixaban (By mouth) Stand Alone Forms: General Discharge Instructions Follow-up/Referrals: Adi Puentes MD [Physician] - Keep Reg. Schedu
[2021-10-22] MEDS: APIXABAN 2.5 MG TABLET PO (09:29)
[2021-10-22] MEDS: CELECOXIB 200 MG CAPSULE PO (09:29)
[2021-10-22] MEDS: CHOLECALCIFEROL 1,000 UNITS TABLET 1000 UNITS PO (09:30)
[2021-10-22] MEDS: polyethylene glycoL 3350 17 GM POWD.PACK PO (09:30)
[2021-10-22] MEDS: SENNA/DOCUSATE SODIUM TABLET 2 TAB PO (09:30)
[2021-10-22] MEDS: ESCITALOPRAM OXALATE 10 MG TABLET PO (09:30)
[2021-10-22 10:02] VITALS: O2SAT 96
[2021-10-22 10:08] VITALS: BP 106/56; PULSE 85; RESP 14; TEMP 36.4; O2SAT 100
--- NOTE | 2021-10-22 13:01 | WPDANESPN ---
Anes - Prog Note Post-Op Date/Time: 10/22/21 13:01 Cardiovascular status: normal Respiratory status: normal Airway patency: baseline Mental status: baseline Post-Op hydration status: normal Vital Signs: Last Vital Signs Temp 36.4 C 10/22/21 10:08 Pulse 85 10/22/21 10:08 Resp 14 10/22/21 10:08 BP 106/56 L 10/22/21 10:08 Pulse Ox 100 10/22/21 10:08 O2 Del Method Room Air 10/22/21 10:02 O2 Flow Rate 6 10/21/21 16:45 Pain Score (VAS): 5 I/O: Intake & Output 10/21/21 10/22/21 10/22/21 23:59 07:59 15:59 Intake Total 1400 1300 850 Output Total 200 Balance 1400 1100 850 Laboratory Tests 10/22/21 05:19 10/22/21 05:19 10/22/21 10/22/21 05:19 05:19 WBC 11.8 H RBC 3.99 L Hgb 11.0 L Hct 34.2 L MCV 85.7 MCH 27.6 MCHC 32.2 RDW 14.1 Plt Count 281 MPV 10.1 Immature Gran % (Auto) 0.4 Neut % (Auto) 80.3 H Lymph % (Auto) 10.4 L [place] % (Auto) 8.3 Eos % (Auto) 0.3 Baso % (Auto) 0.3 Lymph # (Auto) 1.22 [place] # (Auto) 1.0 H Eos # (Auto) 0.0 Baso # (Auto) 0.0 Abs Immat Gran (auto) 0.05 H Absolute Neuts (auto) 9.4 H Absolute Nucleated RBC 0.0 Nucleated RBC % 0.0 Sodium 137 Potassium 3.7 Chloride 103 Carbon Dioxide 29 Anion Gap 5 L BUN 11 Creatinine 0.70 Estim Creat Clear Calc 75 Estimated GFR > 60 Glucose 110 Calcium 8.5 Post-procedural complaints: none Patient Feedback: Patient satisfied with anesthetic care.
== END 2021-10-22 15:00 | disposition home or self-care (01) ==
LOC: ANHSURGERY 09:54 → ANH2MED 17:42
PROVIDERS: PCP Internal Medicine; Visit Provider Orthopaedic Surgery
PROC: (CPT 27447; principal; 2021-10-21 12:00)
DX: M17.11 Unilateral primary osteoarthritis, right knee (principal); F41.9 Anxiety disorder, unspecified; Z87.891 Personal history of nicotine dependence
CPT/HCPCS: 27447; 36415; 73560; 80048; 80307; 82040; 83036; 85025; 86850; 86900; 86901; 87070; 87147; 87181; 87186; 93005; 97110; 97161; 97165; A9270; C1713; C1776; J0171; J0690; J1100; J1170; J1885; J2250; J2270; J2370; J2405; J2704; J2795; J3010; J3370; J7030; J7120

== ENCOUNTER 2021-10-26 10:49 | Outpatient (RCR) | payer OTHER, SELFPAY ==
--- NOTE | 2021-10-26 17:17 | PTOPEVAL1 ---
Evaluation Information Assessment Status Evaluation Diagnosis R TKA Subjective Information Pt had R TKA on 10/21/[address] Puentes. Pt reports that her pain is becoming more and more manageable although she still has discomfort when bending her knee too much or when sleeping on it wrong. She has been performing her exercises as Dr Aaliyah Puentes instructed and has been sleeping with her leg elevated. For pain relief, patient has been resting, performing her exercises, and taking pain medication. She tried ice for pain relief but almost felt it made her knee feel worse. Every day she reports that the exercises are getting better, walking is getting better. Reports some numbness on the lateral portion of her knee and sometimes has a sharp shooting pain on the medial side. Otherwise, she is very happy with her progress so far. She has a follow-up appointment on 11/04/21. Reported Pain Level Pain Score 2: Self Report Assessment PT Clinical Summary Pt presents to PT s/p R TKA on 10/21/21 with pain, decreased ROM, decreased strength, and antalgic gait. 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 We reviewed her exercises in accordance with Dr. Puentes's protocol and exercises were continued to improve knee strength and mobility. She will benefit from skilled PT to facilitate symptom relief, improve the aforementioned impairments, and return to functional and recreational activities. Plan of Care Interventions Electrical Stimulation,Gait Training,Hot Pack/Cold Pack,Intermittent Compression,Manual Therapy, Neuro Re-education,Patient/Caregiver Educati, Therapeutic Activities,Therapeutic Exercise PT Services Indicated Yes Treatment Frequency and 2x week for 12 visits Duration These treatments will address the objective and functional deficits as defined above. The patient will be advanced safely and appropriately in order for the patient to progress towards his/her prior level of function. Additional exercises will be introduced and as well as a comprehensive home exercise program upon discharge, if needed, ?to ensure carryover of functional gains achieved in the clinic. This treatment plan has been reviewed and agreement upon by the patient.
--- NOTE | 2021-11-27 12:51 | PTOPPROGNS ---
Assessment and note entered by JT File, PT Evaluation Information Assessment Status Progress Diagnosis R TKA Subjective Information patient reports she feels good this date. she reports she has no pain in the R knee. she reports she does at times still have some tightness in the R knee. she was recently with her surgeon who is happy with her progress, but notes he thinks she can continue to improve her rom of the R knee flexion. Assessment PT Clinical Summary mrs. jalloh presents to skilled PT services for her 10th skilled PT visit this date. as of this date, she has met initial goals for knee rom, ambulating without AD, and has no pain. she would do well to continue skilled PT 1x weekly fro 2 more visits with focus on further progression of R knee arom flexion, increased ambulation speed, further reduction of knee swelling, and improved strength of the R LE to improve her quality of life and return to prior level functional activities without limitations. Plan of Care Interventions Gait Training,Neuro Re-education,Patient/Caregiver Educati,Therapeutic Activities,Therapeutic Exercise PT Services Indicated Yes Treatment Frequency and continue skilled PT 1x weekly for 2 remaining Duration visits per initial POC. These treatments will address the objective and functional deficits as defined above. The patient will be advanced safely and appropriately in order for the patient to progress towards his/her prior level of function. Additional exercises will be introduced and as well as a comprehensive home exercise program upon discharge, if needed, ?to ensure carryover of functional gains achieved in the clinic. This treatment plan has been reviewed and agreement upon by the patient.
== END 2021-12-11 13:44 | disposition home or self-care (01) ==
LOC: CHSPT 10:49
PROVIDERS: Visit Provider Orthopaedic Surgery
DX: Z96.651 Presence of right artificial knee joint (principal); M17.11 Unilateral primary osteoarthritis, right knee
CPT/HCPCS: 97016; 97110; 97116; 97140; 97161

== ENCOUNTER 2023-09-27 07:22 | Outpatient (CLI) | payer OTHER, SELFPAY ==
[2023-09-27 08:35] LABS: Erythrocyte Sedimentation Rate 10 mm/hr (0-20)
[2023-09-27 08:37] LABS: CRP < 0.5 mg/dL (0.0-0.9)
== END 2023-09-27 07:23 | disposition home or self-care (01) ==
LOC: CHSLAB 07:24
PROVIDERS: PCP Internal Medicine; Visit Provider Orthopaedic Surgery
DX: M25.461 Effusion, right knee (principal)
CPT/HCPCS: 36415; 85652; 86140

== ENCOUNTER 2023-10-14 12:02 | Outpatient (CLI) | payer OTHER, SELFPAY ==
--- NOTE | ~2023-10-14 | DEXA_ITS ---
Bone Density Report Name: LEOBARDO CUETO Age: 63 Sex: Female Ethnicity: White Date of : 1960 Indication: postmenopausal; screening for osteoporosis; height loss; Referring Provider: Gilberto Saldana Study: Bone densitometry was performed. Exam Date: October 14, 2023 Accession number: [id number] Bone Density: Region BMD T-score Z-score Classification AP Spine(L1-L4) 0.966 -0.7 1.0 Normal Femoral Neck (Left) 0.715 -1.2 0.3 Osteopenia Total Hip (Left) 0.896 -0.4 0.8 Normal Femoral Neck (Right) 0.690 -1.4 0.1 Osteopenia Total Hip (Right) 0.770 -1.4 -0.2 Osteopenia Femoral Neck Mean 0.703 -1.3 0.2 Osteopenia Total Hip Mean 0.833 -0.9 0.3 Normal World Health Organization criteria for BMD impression classify patients as: Normal (T-score at or above -1.0), Osteopenia (T-score between -1.0 and -2.5), or Osteoporosis (T-score at or below -2.5). 10-year Fracture Risk(1): Major Osteoporotic Fracture 8.5% Hip Fracture 0.8% Reported Risk Factors: [place] (), Neck BMD=0.690, BMI=27.3 (1) FRAX(R) Version 3.08. Fracture probability calculated for an untreated patient. Fracture probability may be lower if the patient has received treatment. Clinical Information Provided by Patient: Has used the following medications: Vitamin D Patient maximum height was 70 Menopause Age: 54 Drinks caffeinated beverages Onset of menses at age 15 Number of children 0 Impression: The patient has low bone mass, based on the Right Total Hip T-score. Discussion: BONE DENSITY IS LOW AT ONE OR MORE SKELETAL SITES. This patient's lowest T-score is low at one or more skeletal sites. It meets the World Health Organization's (WHO) criteria for ?low bone mass? (T-score between -1.0 and -2.5). The patient's 10-year risk of fracture as calculated by FRAX is less than the threshold where pharmacological therapy is recommended by the National Osteoporosis Foundation (NOF). However, all treatment decisions require clinical judgment and consideration of individual patient factors, including patient preferences, comorbidities, previous drug use, risk factors not captured in the FRAX model (e.g., frailty, falls, vitamin D deficiency, increased bone turnover, interval significant decline in bone density) and possible under or overestimation of fracture risk by FRAX. The patient should follow a healthful lifestyle (good nutrition with adequate calcium and vitamin D, and appropriate weight-bearing exercise). Follow-Up: Consider repeating this study in 2 to 3 years to reassess this patient's status, or sooner if there is some new clinical indication. Reported by: Dr. Troy Lockwood on 10/14/2023 12:45:00 PM. Reviewed, dictated and finalized at [facility]
== END 2023-10-14 12:03 | disposition home or self-care (01) ==
LOC: CHSIMG 12:04
PROVIDERS: PCP Internal Medicine; Visit Provider Internal Medicine
DX: Z78.0 Asymptomatic menopausal state (principal); M85.89 Other specified disorders of bone density and structure, multiple sites
CPT/HCPCS: 77080